=== PATIENT | male | born 1980 ===

== ENCOUNTER 2022-01-19 08:31 | Outpatient (CLI) | payer OTHER | END 2022-01-19 08:40 | disposition home or self-care (01) | LOC: SONOGRAMA 08:31 | PROVIDERS: ATTEND Pathology Anatomic Pathology & Clinical Pathology | DX: E04.1 Nontoxic single thyroid nodule (principal); E07.9 Disorder of thyroid, unspecified; E06.5 Other chronic thyroiditis; D34 Benign neoplasm of thyroid gland ==